=== PATIENT | female | born 1970 | race Caucasian/White ===

== ENCOUNTER 2024-10-03 10:01 | Day surgery (SDC) | payer MEDICARE, MEDICAID, SELFPAY ==
--- NOTE | 2024-10-03 | US_ITS ---
[address] [address] Patient Name: DASHANW FERRER MRN: [id number] date: 1970 Sex: F Assigned Patient Location: US Current Patient Location: US Accession/Order Number: [id number] Exam Date: 10/03/2024 10:20 Report Date: 10/03/2024 11:48 At the request of: AFSANEH NOLASCO Procedure: US biopsy FNA add lesion EXAMINATION: US biopsy thyroid, US biopsy FNA add lesion HISTORY: Right Thyroid Nodule COMPARISON: No relevant comparison available. TECHNIQUE: After obtaining informed consent, an ultrasound-guided biopsy was performed in the usual sterile manner. FINDINGS: Thyroid nodule 1: IMAGING: Ultrasound BIOPSY NEEDLE: 2 inch 25-gauge SPECIMEN TYPE, #, LOCATION: 4 fine-needle aspirates, right mid lobe 2.3 cm nodule MEDICATION: 2 cc 1% buffered lidocaine COMPLICATIONS: None. LABORATORY: Molecular studies and pathology OTHER: Negative. Thyroid nodule 2: IMAGING: Ultrasound BIOPSY NEEDLE: 2 inch 25-gauge SPECIMEN TYPE, #, LOCATION: 3 fine-needle aspirates 1.5 cm right lower pole nodule MEDICATION: 2 cc 1% buffered lidocaine COMPLICATIONS: None. LABORATORY: Molecular studies and pathology OTHER: Negative. US/US biopsy FNA add lesion IMPRESSION: Uneventful ultrasound guided biopsy. The patient was instructed to obtain follow up care and biopsy results from the referring physician. Electronically authenticated by: LANNY COLLINS Date: 10/03/2024 11:48
--- NOTE | 2024-10-03 10:18 | US_ITS ---
[address] [address] Patient Name: DASHAWN FERRER MRN: [id number] date: 1970 Sex: F Assigned Patient Location: US Current Patient Location: US Accession/Order Number: [id number] Exam Date: 10/03/2024 10:20 Report Date: 10/03/2024 11:48 At the request of: AFSANEH NOLASCO Procedure: US biopsy thyroid EXAMINATION: US biopsy thyroid, US biopsy FNA add lesion HISTORY: Right Thyroid Nodule COMPARISON: No relevant comparison available. TECHNIQUE: After obtaining informed consent, an ultrasound-guided biopsy was performed in the usual sterile manner. FINDINGS: Thyroid nodule 1: IMAGING: Ultrasound BIOPSY NEEDLE: 2 inch 25-gauge SPECIMEN TYPE, #, LOCATION: 4 fine-needle aspirates, right mid lobe 2.3 cm nodule MEDICATION: 2 cc 1% buffered lidocaine COMPLICATIONS: None. LABORATORY: Molecular studies and pathology OTHER: Negative. Thyroid nodule 2: IMAGING: Ultrasound BIOPSY NEEDLE: 2 inch 25-gauge SPECIMEN TYPE, #, LOCATION: 3 fine-needle aspirates 1.5 cm right lower pole nodule MEDICATION: 2 cc 1% buffered lidocaine COMPLICATIONS: None. LABORATORY: Molecular studies and pathology OTHER: Negative. US/US biopsy thyroid IMPRESSION: Uneventful ultrasound guided biopsy. The patient was instructed to obtain follow up care and biopsy results from the referring physician. Electronically authenticated by: LANNY COLLINS Date: 10/03/2024 11:48
[2024-10-03 10:30] VITALS: BP 110/79; PULSE 75; O2SAT 98
[2024-10-03] MEDS: LIDOCAINE HCL 10 ML, SODIUM BICARBONATE 1 MEQ INJ (11:10)
--- NOTE | 2024-10-03 12:12 | SUR.PREOP ---
09/26/24 Pt instructed on procedure, date, time, and prep.
== END 2024-10-03 11:40 | disposition home or self-care (01) ==
LOC: US 10:08
PROVIDERS: Radiology Diagnostic Radiology; PCP Family Medicine; Visit Provider Otolaryngology
DX: E04.2 Nontoxic multinodular goiter (principal)
CPT/HCPCS: 10005; 10006; 88173